=== PATIENT | male | born 1965 | race African-American/Black ===

== ENCOUNTER 2021-10-29 09:26 | Inpatient (IN) | payer MEDICAID ==
[~2021-10-29] VITALS: Ht 180.3 cm; Wt 76.2 kg
[~2021-10-29 09:26] MED LIST: ASPI81TA87 PO; ATOR40TA28 PO; FAMO20 PO; LOSA-370 PO; METF-1211 PO; NIFE30TA5 PO; aggrenox PO
[2021-10-29] MEDS ORDERED: INSULIN REGULAR, HUMAN 100 UNITS/ML IVP ONE ×2 (09:45→18:30)
[2021-10-29] MEDS ORDERED: SODIUM CHLORIDE 0.9% 1,000 ML IV ONE ×3 (09:45→12:30)
[2021-10-29 10:11] LABS: BASOPHILS % (AUTO) 0.5 % (0.0-2.0); EOSINOPHILS % (AUTO) 0.2 % (1.0-6.0); HEMATOCRIT 51.5 % (41-53); HEMOGLOBIN 16.3 g/dL (13.5-17.5); LYMPHOCYTES # (AUTO) 0.6 K/uL (1.0-4.8); MEAN CORPUSCULAR HEMOGLOBIN 26.1 pg (26.0-34.0); MEAN CORPUSCULAR HGB CONC 31.7 G/dL (31.0-37.0); MEAN CORPUSCULAR VOLUME 82 fL (80-100); NEUTROPHILS # (AUTO) 10.9 K/uL (1.8-7.7); PLATELET COUNT (AUTO) 416 K/uL (150-450); RED BLOOD CELL COUNT(AUTO) 6.25 MIL/uL (4.50-5.90); RED CELL DISTRIBUTION WIDTH 14.4 % (11.5-14.5)
[2021-10-29 10:18] LABS: NEUTROPHILS % (AUTO) 86.3 % (40.0-70.0)
[2021-10-29 10:36] LABS: TROPONIN I 0.08 ng/mL (0.00-0.05)
[2021-10-29 10:37] LABS: INR 1.1 (0.9-1.1); PROTHROMBIN TIME 11.7 SEC (9.4-11.6)
[2021-10-29 10:39] LABS: COVID AG,FIA SOURCE NASOPHARYNGEAL
[2021-10-29 10:50] LABS: AMMONIA < 10 umol/L (11-32)
[2021-10-29 10:53] LABS: ALANINE AMINOTRANSFERASE 20 U/L (12-78); ALBUMIN 3.5 g/dL (3.4-5.0); ALKALINE PHOSPHATASE 92 U/L (46-116); ANION GAP 16 mmol/L (8-16); ASPARTATE AMINOTRANSFERASE 13 U/L (15-37); BILIRUBIN,TOTAL 0.5 mg/dL (0.1-1.0); CALCIUM, TOTAL 9.6 mg/dL (8.8-10.5); CARBON DIOXIDE 26 mmol/L (22-29); CHLORIDE 104 mmol/L (98-107); CREATINE KINASE, TOTAL ONLY 121 U/L (39-308); CREATININE 2.65 mg/dL (0.60-1.30); GLOMERULAR FILTR. RATE CALC 30 mL/min (>60); POTASSIUM 4.8 mmol/L (3.5-5.1); SODIUM SERUM 146 mmol/L (136-145); UREA NITROGEN, BLOOD 67 mg/dL (7-18)
[2021-10-29 10:54] LABS: GLUCOSE,RANDOM 676 mg/dL (70-110)
[2021-10-29 11:27] LABS: GLUCOMETER DEV NAME(LOC) ERT.5; GLUCOSE,POINT OF CARE 484 MG/DL (70-110)
[2021-10-29] MEDS ORDERED: ONDANSETRON HCL 4 MG/2 ML VIAL IVP PRN (12:30)
[2021-10-29] MEDS ORDERED: ACETAMINOPHEN 325 MG TABLET PO PRN (12:30)
[2021-10-29 14:11] LABS: GLUCOMETER DEV NAME(LOC) ERT.5; GLUCOSE,POINT OF CARE 422 MG/DL (70-110)
[2021-10-29 15:16] LABS: ALBUMIN 2.7 g/dL (3.4-5.0); BILIRUBIN,TOTAL 0.4 mg/dL (0.1-1.0); CALCIUM, TOTAL 8.4 mg/dL (8.8-10.5); CREATININE 2.09 mg/dL (0.60-1.30); POTASSIUM 4.4 mmol/L (3.5-5.1); TOTAL PROTEIN, SERUM 7.1 g/dL (6.4-8.2)
[2021-10-29] MEDS: HydrALAZINE HCL 20 MG/ML VIAL IVP PRN (16:57)
[2021-10-29] MEDS ORDERED: LABETALOL HCL 200 MG in DEXTROSE 5%-WATER 160 ML IV PRN (18:30)
[2021-10-29] MEDS ORDERED: INSULIN REGULAR, HUMAN 100 UNITS in SODIUM CHLORIDE 0.9% 99 ML IV PRN ×2 (18:30)
[2021-10-29] MEDS ORDERED: SODIUM CHLORIDE 0.45% 1,000 ML IV ONE (18:30)
[2021-10-29] MEDS ORDERED: DEXTROSE 50%-WATER 25 GM/50 ML SYRINGE IVP PRN (18:30)
[2021-10-29 19:11] LABS: GLUCOMETER DEV NAME(LOC) ERT.5; GLUCOSE,POINT OF CARE 384 MG/DL (70-110)
[2021-10-29 19:23] LABS: BASOPHILS % (AUTO) 0.3 % (0.0-2.0); EOSINOPHILS % (AUTO) 0 % (1.0-6.0); HEMATOCRIT 45.5 % (41-53); HEMOGLOBIN 14.4 g/dL (13.5-17.5); LYMPHOCYTES # (AUTO) 0.6 K/uL (1.0-4.8); LYMPHOCYTES % (AUTO) 5.3 % (22.0-44.0); MEAN CORPUSCULAR HEMOGLOBIN 25.5 pg (26.0-34.0); MEAN CORPUSCULAR HGB CONC 31.6 G/dL (31.0-37.0); MEAN CORPUSCULAR VOLUME 81 fL (80-100); MONOCYTES # (AUTO) 0.8 K/uL (0.1-1.0); MONOCYTES % (AUTO) 6.7 % (2.0-9.0); NEUTROPHILS # (AUTO) 10.3 K/uL (1.8-7.7); NEUTROPHILS % (AUTO) 87.7 % (40.0-70.0); PLATELET COUNT (AUTO) 380 K/uL (150-450); RED BLOOD CELL COUNT(AUTO) 5.65 MIL/uL (4.50-5.90); RED CELL DISTRIBUTION WIDTH 14.3 % (11.5-14.5)
[2021-10-29 19:38] LABS: LACTIC ACID 1.1 mmol/L (0.4-2.0)
[2021-10-29 19:56] LABS: C-REACTIVE PROTEIN QUANT 2.16 mg/dL (0.00-0.30); CALCIUM, TOTAL 8.5 mg/dL (8.8-10.5); CREATININE 1.88 mg/dL (0.60-1.30); FREE T4 (FREE THYROXINE) 1.28 ng/dL (0.76-1.46); POTASSIUM 4.3 mmol/L (3.5-5.1); THYROID STIMULATING HORMONE 0.2 uIU/mL (0.36-3.74)
[2021-10-29] MEDS ORDERED: DESMOPRESSIN ACETATE 1 MCG in SODIUM CHLORIDE 0.9% 50 ML IV ONE (20:15)
[2021-10-29] MEDS ORDERED: SODIUM CHLORIDE 3% 500 ML IV ONE (20:15)
[2021-10-29 20:30] LABS: GLUCOMETER DEV NAME(LOC) ERT.5; GLUCOSE,POINT OF CARE 366 MG/DL (70-110)
[2021-10-29 20:32] LABS: ABG BASE EXCESS -1.9 mmol/L (-2.0-3.0); ABG CARBOXYHEMOGLOBIN 0.3 % (0.0-1.5); ABG HCO3 23.2 mmol/L (22.0-26.0); ABG METHEMOGLOBIN 0.4 % (0.0-1.5); ABG OXYGEN CONTENT 19.7 mL/dL (15.0-23.0); ABG OXYGEN SATURATION 94.5 % (95.0-98.0); ABG OXYHEMOGLOBIN 93.8 % (94.0-100.0); ABG PCO2 37 mmHg (35-45); ABG PH 7.405 (7.35-7.450); ABG TOTAL HEMOGLOBIN 14.9 G/dL (12.0-18.0); SOURCE, BLOOD GAS ARTERIAL; TEMPERATURE, FAHRENHEIT, BG 98.4 FAHREN (96.0-98.6)
[2021-10-29 20:33] LABS: O2 DEVICE,BLOOD GAS ROOM AIR (ROOM AIR); SITE, BLOOD GAS RT RADIAL
[2021-10-29 21:22] LABS: AMPHET/METH SCREEN,URINE NEGATIVE (NEGATIVE); BARBITURATE SCREEN, URINE NEGATIVE (NEGATIVE); BENZODIAZEPINES SCREEN,URINE NEGATIVE (NEGATIVE); CANNABINOID SCREEN,URINE NEGATIVE (NEGATIVE); COCAINE SCREEN,URINE NEGATIVE (NEGATIVE); METHADONE SCREEN, URINE NEGATIVE (NEGATIVE); OPIATE SCREEN,URINE NEGATIVE (NEGATIVE)
[2021-10-29 21:28] LABS: APPEARANCE,URINE CLEAR (CLEAR); BILIRUBIN,URINE NEGATIVE (NEGATIVE); GLUCOSE, URINE (UA) >=1000 mg/dL (NEGATIVE); KETONES,URINE 40 mg/dL (NEGATIVE); LEUKOCYTE ESTERASE ,URINE NEGATIVE (NEGATIVE); NITRATE,URINE NEGATIVE (NEGATIVE); OCCULT BLOOD,URINE NEGATIVE (NEGATIVE); PROTEIN,URINE TRACE (NEGATIVE); UROBILINOGEN,URINE 0.2 mg/dL (<=1.0)
[2021-10-29 21:30] LABS: PHENCYCLIDINE SCREEN,URINE NEGATIVE (NEGATIVE)
[2021-10-29 21:43] LABS: BACTERIA,URINE Rare /HPF (None Seen); RBC,URINE 0-2 /HPF (0-2); WBC,URINE 0-2 /HPF (0-5); YEAST,URINE Rare /HPF (None Seen)
[2021-10-29 21:52] LABS: GLUCOMETER DEV NAME(LOC) ERT.5; GLUCOSE,POINT OF CARE 374 MG/DL (70-110)
[2021-10-29 22:41] LABS: GLUCOMETER DEV NAME(LOC) ERT.5; GLUCOSE,POINT OF CARE 345 MG/DL (70-110)
[2021-10-29 23:09] LABS: BASOPHILS % (AUTO) 0.5 % (0.0-2.0); EOSINOPHILS % (AUTO) 0 % (1.0-6.0); HEMATOCRIT 44.3 % (41-53); HEMOGLOBIN 14.4 g/dL (13.5-17.5); LYMPHOCYTES # (AUTO) 0.4 K/uL (1.0-4.8); LYMPHOCYTES % (AUTO) 4.4 % (22.0-44.0); MEAN CORPUSCULAR HGB CONC 32.5 G/dL (31.0-37.0); MEAN CORPUSCULAR VOLUME 80 fL (80-100); MONOCYTES # (AUTO) 0.4 K/uL (0.1-1.0); MONOCYTES % (AUTO) 4.3 % (2.0-9.0); NEUTROPHILS # (AUTO) 9.2 K/uL (1.8-7.7); PLATELET COUNT (AUTO) 361 K/uL (150-450); RED BLOOD CELL COUNT(AUTO) 5.52 MIL/uL (4.50-5.90); RED CELL DISTRIBUTION WIDTH 14.4 % (11.5-14.5)
[2021-10-29 23:11] LABS: NEUTROPHILS % (AUTO) 90.8 % (40.0-70.0)
[2021-10-29 23:30] LABS: CALCIUM, TOTAL 8.5 mg/dL (8.8-10.5); CREATININE 1.89 mg/dL (0.60-1.30); POTASSIUM 3.6 mmol/L (3.5-5.1)
[2021-10-29 23:36] LABS: GLUCOMETER DEV NAME(LOC) ERT.5; GLUCOSE,POINT OF CARE 291 MG/DL (70-110)
[2021-10-30 00:31] LABS: GLUCOMETER DEV NAME(LOC) ERT.5; GLUCOSE,POINT OF CARE 267 MG/DL (70-110)
[2021-10-30] MEDS ORDERED: DEXTROSE 50%-WATER 25 GM/50 ML SYRINGE IVP PRN (00:45)
[2021-10-30 01:34] VITALS: BP 153/88
[2021-10-30 03:28] VITALS: BP 170/90
[2021-10-30] MEDS: HydrALAZINE HCL 20 MG/ML VIAL IVP PRN (03:33)
[2021-10-30] MEDS: INSULIN LISPRO 100 UNITS/ML SQ PRN ×4 (06:18→20:58)
[2021-10-30 08:11] LABS: ALBUMIN 2.6 g/dL (3.4-5.0); BILIRUBIN,TOTAL 0.4 mg/dL (0.1-1.0); CALCIUM, TOTAL 8.5 mg/dL (8.8-10.5); CREATININE 1.65 mg/dL (0.60-1.30); POTASSIUM 3.8 mmol/L (3.5-5.1); TOTAL PROTEIN, SERUM 7.1 g/dL (6.4-8.2)
[2021-10-30 08:41] VITALS: BP 130/83
[2021-10-30] MEDS: FAMOTIDINE 20 MG TABLET PO SCH (09:30)
[2021-10-30] MEDS: LOSARTAN POTASSIUM 25 MG TABLET PO SCH (09:30)
[2021-10-30] MEDS: DEXTROSE 5%-WATER 500 ML IV SCH ×2 (09:46→17:17)
[2021-10-30] MEDS: CefTRIAXone 1 GM/DEXTROSE 50 ML IV SCH (10:40)
[2021-10-30 11:46] LABS: GLUCOMETER DEV NAME(LOC) 5N.3; GLUCOSE,POINT OF CARE 294 MG/DL (70-110)
[2021-10-30 11:46] LABS: GLUCOMETER DEV NAME(LOC) 5N.3; GLUCOSE,POINT OF CARE 239 MG/DL (70-110)
[2021-10-30 11:49] VITALS: BP 153/87
[2021-10-30 12:16] LABS: GLUCOMETER DEV NAME(LOC) 5N.1C; GLUCOSE,POINT OF CARE 255 MG/DL (70-110)
[2021-10-30] MEDS ORDERED: ASPI-1444 PO (13:46)
[2021-10-30] MEDS ORDERED: ASPI1CPM21 PO (13:46)
[2021-10-30 15:14] VITALS: BP 137/99
[2021-10-30] MEDS: ATORVASTATIN CALCIUM 40 MG TABLET PO SCH (20:50)
[2021-10-30] MEDS: INSULIN GLARGINE,HUM.REC.ANLOG 100 UNITS/ML SQ SCH (20:56)
[2021-10-30 21:01] LABS: GLUCOMETER DEV NAME(LOC) 5N.1C; GLUCOSE,POINT OF CARE 309 MG/DL (70-110)
[2021-10-31] MEDS: DEXTROSE 5%-WATER 500 ML IV SCH ×2 (00:54→05:30)
[2021-10-31 05:41] LABS: GLUCOMETER DEV NAME(LOC) 5N.1C; GLUCOSE,POINT OF CARE 258 MG/DL (70-110)
[2021-10-31 07:12] VITALS: BP 140/91
[2021-10-31 07:15] VITALS: BP 158/98
[2021-10-31 07:35] LABS: GLUCOMETER DEV NAME(LOC) 5N.1C; GLUCOSE,POINT OF CARE 260 MG/DL (70-110)
[2021-10-31] MEDS: FAMOTIDINE 20 MG TABLET PO SCH (07:55)
[2021-10-31] MEDS: NIFEdipine 30 MG ER TABLET PO SCH (07:55)
[2021-10-31] MEDS: LOSARTAN POTASSIUM 25 MG TABLET PO SCH (07:55)
[2021-10-31] MEDS: ASPIRIN 81 MG DR TABLET PO SCH (07:55)
[2021-10-31 08:40] LABS: ALBUMIN 2.2 g/dL (3.4-5.0); BILIRUBIN,TOTAL 0.4 mg/dL (0.1-1.0); CALCIUM, TOTAL 7.7 mg/dL (8.8-10.5); CREATININE 1.64 mg/dL (0.60-1.30); POTASSIUM 3.3 mmol/L (3.5-5.1); TOTAL PROTEIN, SERUM 6.4 g/dL (6.4-8.2)
[2021-10-31] MEDS: INSULIN GLARGINE,HUM.REC.ANLOG 100 UNITS/ML SQ SCH ×2 (08:57→21:00)
[2021-10-31] MEDS: CefTRIAXone 1 GM/DEXTROSE 50 ML IV SCH (09:11)
[2021-10-31 11:22] VITALS: BP 130/70
[2021-10-31 11:57] LABS: GLUCOMETER DEV NAME(LOC) 5N.1C; GLUCOSE,POINT OF CARE 292 MG/DL (70-110)
[2021-10-31] MEDS: INSULIN LISPRO 100 UNITS/ML SQ PRN ×2 (12:15→17:37)
[2021-10-31 12:24] LABS: BASOPHILS % (AUTO) 0.4 % (0.0-2.0); EOSINOPHILS % (AUTO) 0 % (1.0-6.0); HEMATOCRIT 46.8 % (41-53); HEMOGLOBIN 14.6 g/dL (13.5-17.5); LYMPHOCYTES # (AUTO) 0.6 K/uL (1.0-4.8); LYMPHOCYTES % (AUTO) 6.5 % (22.0-44.0); MEAN CORPUSCULAR HEMOGLOBIN 25.7 pg (26.0-34.0); MEAN CORPUSCULAR HGB CONC 31.3 G/dL (31.0-37.0); MEAN CORPUSCULAR VOLUME 82 fL (80-100); MONOCYTES # (AUTO) 0.4 K/uL (0.1-1.0); MONOCYTES % (AUTO) 4.2 % (2.0-9.0); NEUTROPHILS # (AUTO) 8.3 K/uL (1.8-7.7); PLATELET COUNT (AUTO) 298 K/uL (150-450); RED CELL DISTRIBUTION WIDTH 14.8 % (11.5-14.5)
[2021-10-31 12:26] LABS: NEUTROPHILS % (AUTO) 88.9 % (40.0-70.0)
[2021-10-31 13:00] LABS: CALCIUM, TOTAL 8.8 mg/dL (8.8-10.5); CREATININE 1.8 mg/dL (0.60-1.30); POTASSIUM 4.1 mmol/L (3.5-5.1)
[2021-10-31 13:04] LABS: ALBUMIN 2.5 g/dL (3.4-5.0); BILIRUBIN,TOTAL 0.4 mg/dL (0.1-1.0); TOTAL PROTEIN, SERUM 7.1 g/dL (6.4-8.2)
[2021-10-31 15:01] LABS: BASOPHILS % (AUTO) 0.3 % (0.0-2.0); EOSINOPHILS % (AUTO) 0 % (1.0-6.0); HEMATOCRIT 47.8 % (41-53); HEMOGLOBIN 15.1 g/dL (13.5-17.5); LYMPHOCYTES # (AUTO) 0.7 K/uL (1.0-4.8); LYMPHOCYTES % (AUTO) 7.5 % (22.0-44.0); MEAN CORPUSCULAR HEMOGLOBIN 25.7 pg (26.0-34.0); MEAN CORPUSCULAR HGB CONC 31.6 G/dL (31.0-37.0); MEAN CORPUSCULAR VOLUME 81 fL (80-100); MONOCYTES # (AUTO) 0.4 K/uL (0.1-1.0); MONOCYTES % (AUTO) 4.5 % (2.0-9.0); PLATELET COUNT (AUTO) 280 K/uL (150-450); RED BLOOD CELL COUNT(AUTO) 5.88 MIL/uL (4.50-5.90); RED CELL DISTRIBUTION WIDTH 14.4 % (11.5-14.5)
[2021-10-31 15:02] LABS: NEUTROPHILS % (AUTO) 87.7 % (40.0-70.0)
[2021-10-31 15:27] VITALS: BP 149/88
[2021-10-31 16:00] LABS: BASOPHILS % (AUTO) 0.2 % (0.0-2.0); EOSINOPHILS % (AUTO) 0 % (1.0-6.0); HEMOGLOBIN 15.7 g/dL (13.5-17.5); LYMPHOCYTES # (AUTO) 0.8 K/uL (1.0-4.8); LYMPHOCYTES % (AUTO) 8.5 % (22.0-44.0); MEAN CORPUSCULAR HEMOGLOBIN 25.7 pg (26.0-34.0); MEAN CORPUSCULAR HGB CONC 31.9 G/dL (31.0-37.0); MEAN CORPUSCULAR VOLUME 81 fL (80-100); MONOCYTES # (AUTO) 0.5 K/uL (0.1-1.0); MONOCYTES % (AUTO) 6.1 % (2.0-9.0); NEUTROPHILS # (AUTO) 7.6 K/uL (1.8-7.7); PLATELET COUNT (AUTO) 276 K/uL (150-450); RED BLOOD CELL COUNT(AUTO) 6.08 MIL/uL (4.50-5.90); RED CELL DISTRIBUTION WIDTH 14.4 % (11.5-14.5)
[2021-10-31 16:07] LABS: NEUTROPHILS % (AUTO) 85.2 % (40.0-70.0)
[2021-10-31 16:11] LABS: LACTIC ACID 1.5 mmol/L (0.4-2.0); TROPONIN I 0.16 ng/mL (0.00-0.05)
[2021-10-31 16:20] LABS: CALCIUM, TOTAL 8.5 mg/dL (8.8-10.5); CREATININE 1.6 mg/dL (0.60-1.30); POTASSIUM 3.6 mmol/L (3.5-5.1)
[2021-10-31 16:25] LABS: ALBUMIN 2.4 g/dL (3.4-5.0); BILIRUBIN,TOTAL 0.3 mg/dL (0.1-1.0); TOTAL PROTEIN, SERUM 7.2 g/dL (6.4-8.2)
[2021-10-31 17:52] LABS: GLUCOMETER DEV NAME(LOC) 5N.3; GLUCOSE,POINT OF CARE 215 MG/DL (70-110)
[2021-10-31 17:52] LABS: GLUCOMETER DEV NAME(LOC) 5N.3; GLUCOSE,POINT OF CARE 212 MG/DL (70-110)
[2021-10-31 19:36] VITALS: BP 138/84
[2021-10-31 20:21] LABS: GLUCOMETER DEV NAME(LOC) 5N.1C; GLUCOSE,POINT OF CARE 319 MG/DL (70-110)
[2021-10-31] MEDS: ATORVASTATIN CALCIUM 40 MG TABLET PO SCH (21:00)
[2021-10-31] MEDS ORDERED: D5 IV ONE (21:00)
[2021-10-31] MEDS ORDERED: POTASSIUM CHL IV ONE (21:00)
[2021-10-31] MEDS ORDERED: [UNRECOGNIZED DRUG - OTHER] IV ONE (21:00)
[2021-10-31 21:21] LABS: GLUCOMETER DEV NAME(LOC) 5N.3; GLUCOSE,POINT OF CARE 174 MG/DL (70-110)
[2021-10-31] MEDS ORDERED: SODIUM CHLORIDE 0.45% 1,000 ML IV SCH (23:30)
[2021-11-01] VITALS (7 sets, daily range): BP systolic 116–162; BP diastolic 71–96
[2021-11-01] MEDS: HydrALAZINE HCL 20 MG/ML VIAL IVP PRN (00:29)
[2021-11-01 02:57] LABS: CALCIUM, TOTAL 8.3 mg/dL (8.8-10.5); CREATININE 1.5 mg/dL (0.60-1.30); POTASSIUM 3.9 mmol/L (3.5-5.1)
[2021-11-01] MEDS: DEXTROSE 5%-WATER 1,000 ML IV SCH ×2 (03:00→10:15)
[2021-11-01] MEDS ORDERED: IOHEXOL 350 MG/ML 100 ML VIAL ONE (04:07)
[2021-11-01] MEDS ORDERED: SODIUM CHLORIDE 0.9% 100 ML ONE (04:07)
[2021-11-01] MEDS: INSULIN LISPRO 100 UNITS/ML SQ PRN ×4 (05:47→22:32)
[2021-11-01 05:52] LABS: GLUCOMETER DEV NAME(LOC) 5N.3; GLUCOSE,POINT OF CARE 248 MG/DL (70-110)
[2021-11-01] MEDS ORDERED: HEPARIN SODIUM,PORCINE 5,000 UNITS/ML VIAL IVP PRN ×2 (06:00)
[2021-11-01] MEDS ORDERED: HEPARIN SODIUM,PORCINE 5,000 UNITS/ML VIAL IVP ONE (06:00)
[2021-11-01 06:55] LABS: BASOPHILS % (AUTO) 0.5 % (0.0-2.0); EOSINOPHILS % (AUTO) 0 % (1.0-6.0); HEMATOCRIT 47.8 % (41-53); HEMOGLOBIN 15.2 g/dL (13.5-17.5); LYMPHOCYTES # (AUTO) 0.9 K/uL (1.0-4.8); LYMPHOCYTES % (AUTO) 8.6 % (22.0-44.0); MEAN CORPUSCULAR HEMOGLOBIN 26.1 pg (26.0-34.0); MEAN CORPUSCULAR HGB CONC 31.8 G/dL (31.0-37.0); MEAN CORPUSCULAR VOLUME 82 fL (80-100); MONOCYTES # (AUTO) 0.5 K/uL (0.1-1.0); MONOCYTES % (AUTO) 4.7 % (2.0-9.0); NEUTROPHILS # (AUTO) 8.8 K/uL (1.8-7.7); PLATELET COUNT (AUTO) 223 K/uL (150-450); RED BLOOD CELL COUNT(AUTO) 5.83 MIL/uL (4.50-5.90); RED CELL DISTRIBUTION WIDTH 14.6 % (11.5-14.5)
[2021-11-01 06:58] LABS: NEUTROPHILS % (AUTO) 86.2 % (40.0-70.0)
[2021-11-01 08:14] LABS: INR 1.4 (0.9-1.1); PROTHROMBIN TIME 14.7 SEC (9.4-11.6)
[2021-11-01] MEDS: FAMOTIDINE 20 MG TABLET PO SCH (08:45)
[2021-11-01] MEDS: NIFEdipine 30 MG ER TABLET PO SCH ×2 (08:45→16:18)
[2021-11-01] MEDS: ASPIRIN 81 MG DR TABLET PO SCH (08:45)
[2021-11-01] MEDS: INSULIN GLARGINE,HUM.REC.ANLOG 100 UNITS/ML SQ SCH ×2 (08:47→22:32)
[2021-11-01] MEDS: ACETYLCYSTEINE 20% 200 MG/ML 4 ML ORAL SOLUTION PO SCH ×2 (09:00→22:29)
[2021-11-01] MEDS: HEPARIN SODIUM 25000 UNITS/D5W 250 ML IV PRN ×2 (10:01→17:48)
[2021-11-01] MEDS: CefTRIAXone 1 GM/DEXTROSE 50 ML IV SCH (10:03)
[2021-11-01 15:21] LABS: GLUCOMETER DEV NAME(LOC) 5N.3; GLUCOSE,POINT OF CARE 312 MG/DL (70-110)
[2021-11-01 16:12] LABS: BASOPHILS % (AUTO) 0.2 % (0.0-2.0); EOSINOPHILS % (AUTO) 0.1 % (1.0-6.0); HEMATOCRIT 44.7 % (41-53); HEMOGLOBIN 14.1 g/dL (13.5-17.5); LYMPHOCYTES # (AUTO) 0.8 K/uL (1.0-4.8); LYMPHOCYTES % (AUTO) 8.7 % (22.0-44.0); MEAN CORPUSCULAR HEMOGLOBIN 25.9 pg (26.0-34.0); MEAN CORPUSCULAR HGB CONC 31.7 G/dL (31.0-37.0); MEAN CORPUSCULAR VOLUME 82 fL (80-100); MONOCYTES # (AUTO) 0.6 K/uL (0.1-1.0); NEUTROPHILS # (AUTO) 8.3 K/uL (1.8-7.7); PLATELET COUNT (AUTO) 234 K/uL (150-450); RED BLOOD CELL COUNT(AUTO) 5.47 MIL/uL (4.50-5.90); RED CELL DISTRIBUTION WIDTH 14.5 % (11.5-14.5)
[2021-11-01] MEDS: METOPROLOL SUCCINATE 25 MG ER TABLET PO SCH (16:20)
[2021-11-01 16:21] LABS: CALCIUM, TOTAL 8.1 mg/dL (8.8-10.5); CREATININE 1.51 mg/dL (0.60-1.30); POTASSIUM 3.8 mmol/L (3.5-5.1)
[2021-11-01 16:27] LABS: ALBUMIN 2.1 g/dL (3.4-5.0); BILIRUBIN,TOTAL 0.4 mg/dL (0.1-1.0); TOTAL PROTEIN, SERUM 6.4 g/dL (6.4-8.2)
[2021-11-01] MEDS ORDERED: ACETAMINOPHEN 325 MG TABLET PO PRN (17:30)
[2021-11-01 22:16] LABS: GLUCOMETER DEV NAME(LOC) 5N.3; GLUCOSE,POINT OF CARE 260 MG/DL (70-110)
[2021-11-01 22:16] LABS: GLUCOMETER DEV NAME(LOC) 5N.3; GLUCOSE,POINT OF CARE 319 MG/DL (70-110)
[2021-11-01] MEDS: ATORVASTATIN CALCIUM 40 MG TABLET PO SCH (22:29)
[2021-11-02] MEDS: DEXTROSE 5%-WATER 1,000 ML IV SCH ×2 (03:30→17:19)
[2021-11-02 04:20] VITALS: BP 150/87
[2021-11-02 05:51] LABS: GLUCOMETER DEV NAME(LOC) 5N.3; GLUCOSE,POINT OF CARE 131 MG/DL (70-110)
[2021-11-02 07:36] VITALS: BP 145/90
[2021-11-02] MEDS: INSULIN GLARGINE,HUM.REC.ANLOG 100 UNITS/ML SQ SCH ×2 (07:42→21:04)
[2021-11-02 09:10] LABS: BASOPHILS % (AUTO) 0.5 % (0.0-2.0); EOSINOPHILS % (AUTO) 0.2 % (1.0-6.0); HEMATOCRIT 43.2 % (41-53); HEMOGLOBIN 13.9 g/dL (13.5-17.5); LYMPHOCYTES # (AUTO) 1.1 K/uL (1.0-4.8); LYMPHOCYTES % (AUTO) 10.9 % (22.0-44.0); MEAN CORPUSCULAR HGB CONC 32.2 G/dL (31.0-37.0); MEAN CORPUSCULAR VOLUME 81 fL (80-100); MONOCYTES # (AUTO) 0.7 K/uL (0.1-1.0); MONOCYTES % (AUTO) 6.9 % (2.0-9.0); NEUTROPHILS # (AUTO) 8.4 K/uL (1.8-7.7); NEUTROPHILS % (AUTO) 81.5 % (40.0-70.0); PLATELET COUNT (AUTO) 232 K/uL (150-450); RED BLOOD CELL COUNT(AUTO) 5.34 MIL/uL (4.50-5.90); RED CELL DISTRIBUTION WIDTH 14.2 % (11.5-14.5)
[2021-11-02] MEDS: HEPARIN SODIUM 25000 UNITS/D5W 250 ML IV PRN (09:12)
[2021-11-02] MEDS: FAMOTIDINE 20 MG TABLET PO SCH (09:13)
[2021-11-02] MEDS: CefTRIAXone 1 GM/DEXTROSE 50 ML IV SCH (09:13)
[2021-11-02] MEDS: METOPROLOL SUCCINATE 25 MG ER TABLET PO SCH (09:14)
[2021-11-02] MEDS: ACETYLCYSTEINE 20% 200 MG/ML 4 ML ORAL SOLUTION PO SCH ×2 (09:14→21:03)
[2021-11-02] MEDS: ASPIRIN 81 MG DR TABLET PO SCH (09:14)
[2021-11-02 09:28] LABS: ALANINE AMINOTRANSFERASE 13 U/L (12-78); ALKALINE PHOSPHATASE 61 U/L (46-116); ANION GAP 5 mmol/L (8-16); ASPARTATE AMINOTRANSFERASE 16 U/L (15-37); BILIRUBIN,TOTAL 0.5 mg/dL (0.1-1.0); CARBON DIOXIDE 29 mmol/L (22-29); CHLORIDE 114 mmol/L (98-107); CREATININE 1.43 mg/dL (0.60-1.30); GLUCOSE,RANDOM 237 mg/dL (70-110); POTASSIUM 3.5 mmol/L (3.5-5.1); SODIUM SERUM 148 mmol/L (136-145); TOTAL PROTEIN, SERUM 6.4 g/dL (6.4-8.2); UREA NITROGEN, BLOOD 16 mg/dL (7-18)
[2021-11-02 09:30] LABS: GLOMERULAR FILTR. RATE CALC > 60 mL/min (>60)
[2021-11-02 11:04] VITALS: BP 142/70
[2021-11-02] MEDS: INSULIN LISPRO 100 UNITS/ML SQ PRN ×3 (12:48→21:04)
[2021-11-02 13:16] LABS: GLUCOMETER DEV NAME(LOC) 5N.3; GLUCOSE,POINT OF CARE 225 MG/DL (70-110)
[2021-11-02 15:40] VITALS: BP 135/86
[2021-11-02 19:42] VITALS: BP 134/64
[2021-11-02] MEDS: DOCUSATE SODIUM 100 MG CAPSULE PO SCH (21:03)
[2021-11-02] MEDS: ATORVASTATIN CALCIUM 40 MG TABLET PO SCH (21:03)
[2021-11-02 21:16] LABS: GLUCOMETER DEV NAME(LOC) 5N.1C; GLUCOSE,POINT OF CARE 169 MG/DL (70-110)
[2021-11-02 23:33] VITALS: BP 126/64
[2021-11-03 04:10] VITALS: BP 151/90
[2021-11-03] MEDS ORDERED: SODIUM CHLORIDE 0.9% 1,000 ML ONE (06:15)
[2021-11-03] MEDS: INSULIN LISPRO 100 UNITS/ML SQ PRN ×4 (06:16→21:08)
[2021-11-03] MEDS: DEXTROSE 5%-WATER 1,000 ML IV SCH ×2 (06:21→16:51)
[2021-11-03 06:27] LABS: GLUCOMETER DEV NAME(LOC) 5N.1C; GLUCOSE,POINT OF CARE 237 MG/DL (70-110)
[2021-11-03 07:11] LABS: GLUCOMETER DEV NAME(LOC) 5N.3; GLUCOSE,POINT OF CARE 183 MG/DL (70-110)
[2021-11-03] MEDS: FAMOTIDINE 20 MG TABLET PO SCH (07:58)
[2021-11-03] MEDS: NIFEdipine 30 MG ER TABLET PO SCH (07:58)
[2021-11-03] MEDS: DOCUSATE SODIUM 100 MG CAPSULE PO SCH ×2 (07:58→21:11)
[2021-11-03] MEDS: METOPROLOL SUCCINATE 25 MG ER TABLET PO SCH (07:58)
[2021-11-03] MEDS: ASPIRIN 81 MG DR TABLET PO SCH (07:58)
[2021-11-03] MEDS: INSULIN GLARGINE,HUM.REC.ANLOG 100 UNITS/ML SQ SCH ×2 (08:02→21:08)
[2021-11-03 08:06] VITALS: BP 155/87
[2021-11-03 10:03] LABS: BASOPHILS % (AUTO) 0.6 % (0.0-2.0); EOSINOPHILS % (AUTO) 1.5 % (1.0-6.0); HEMATOCRIT 42.7 % (41-53); HEMOGLOBIN 13.9 g/dL (13.5-17.5); LYMPHOCYTES # (AUTO) 1.1 K/uL (1.0-4.8); LYMPHOCYTES % (AUTO) 12.4 % (22.0-44.0); MEAN CORPUSCULAR HEMOGLOBIN 25.9 pg (26.0-34.0); MEAN CORPUSCULAR HGB CONC 32.5 G/dL (31.0-37.0); MEAN CORPUSCULAR VOLUME 80 fL (80-100); MONOCYTES # (AUTO) 0.8 K/uL (0.1-1.0); NEUTROPHILS # (AUTO) 6.8 K/uL (1.8-7.7); NEUTROPHILS % (AUTO) 76.5 % (40.0-70.0); PLATELET COUNT (AUTO) 239 K/uL (150-450); RED BLOOD CELL COUNT(AUTO) 5.35 MIL/uL (4.50-5.90)
[2021-11-03] MEDS: CefTRIAXone 1 GM/DEXTROSE 50 ML IV SCH (10:09)
[2021-11-03 10:17] LABS: ALANINE AMINOTRANSFERASE 15 U/L (12-78); ALBUMIN 1.9 g/dL (3.4-5.0); ALKALINE PHOSPHATASE 91 U/L (46-116); ANION GAP 5 mmol/L (8-16); ASPARTATE AMINOTRANSFERASE 21 U/L (15-37); BILIRUBIN,TOTAL 0.6 mg/dL (0.1-1.0); CALCIUM, TOTAL 7.9 mg/dL (8.8-10.5); CARBON DIOXIDE 29 mmol/L (22-29); CHLORIDE 104 mmol/L (98-107); CREATININE 1.19 mg/dL (0.60-1.30); GLOMERULAR FILTR. RATE CALC > 60 mL/min (>60); GLUCOSE,RANDOM 188 mg/dL (70-110); POTASSIUM 3.2 mmol/L (3.5-5.1); SODIUM SERUM 138 mmol/L (136-145); TOTAL PROTEIN, SERUM 6.6 g/dL (6.4-8.2); UREA NITROGEN, BLOOD 11 mg/dL (7-18)
[2021-11-03 12:56] VITALS: BP 153/88
[2021-11-03 16:33] VITALS: BP 149/85
[2021-11-03 20:32] VITALS: BP 119/66
[2021-11-03] MEDS ORDERED: POTASSIUM CHLORIDE 10% 40 MEQ/30 ML LIQUID UDCUP PO ONE (20:45)
[2021-11-03] MEDS: APIXABAN 5 MG TABLET PO SCH (21:11)
[2021-11-03] MEDS: ATORVASTATIN CALCIUM 40 MG TABLET PO SCH (21:11)
[2021-11-03 21:36] LABS: GLUCOMETER DEV NAME(LOC) 5N.1C; GLUCOSE,POINT OF CARE 255 MG/DL (70-110)
[2021-11-03 21:36] LABS: GLUCOMETER DEV NAME(LOC) 5N.1C; GLUCOSE,POINT OF CARE 308 MG/DL (70-110)
[2021-11-04] VITALS (7 sets, daily range): BP systolic 114–140; BP diastolic 64–91
[2021-11-04 07:16] LABS: GLUCOMETER DEV NAME(LOC) 5N.1C; GLUCOSE,POINT OF CARE 113 MG/DL (70-110)
[2021-11-04 07:57] LABS: BASOPHILS % (AUTO) 0.3 % (0.0-2.0); EOSINOPHILS % (AUTO) 1.6 % (1.0-6.0); HEMATOCRIT 39.2 % (41-53); HEMOGLOBIN 12.4 g/dL (13.5-17.5); LYMPHOCYTES # (AUTO) 1.2 K/uL (1.0-4.8); LYMPHOCYTES % (AUTO) 11.7 % (22.0-44.0); MEAN CORPUSCULAR HEMOGLOBIN 25.3 pg (26.0-34.0); MEAN CORPUSCULAR HGB CONC 31.7 G/dL (31.0-37.0); MEAN CORPUSCULAR VOLUME 80 fL (80-100); MONOCYTES # (AUTO) 1.1 K/uL (0.1-1.0); MONOCYTES % (AUTO) 11.2 % (2.0-9.0); NEUTROPHILS # (AUTO) 7.4 K/uL (1.8-7.7); NEUTROPHILS % (AUTO) 75.2 % (40.0-70.0); PLATELET COUNT (AUTO) 241 K/uL (150-450); RED BLOOD CELL COUNT(AUTO) 4.91 MIL/uL (4.50-5.90); RED CELL DISTRIBUTION WIDTH 13.6 % (11.5-14.5)
[2021-11-04 08:27] LABS: ALANINE AMINOTRANSFERASE 32 U/L (12-78); ALBUMIN 1.9 g/dL (3.4-5.0); ALKALINE PHOSPHATASE 59 U/L (46-116); ANION GAP 8 mmol/L (8-16); ASPARTATE AMINOTRANSFERASE 53 U/L (15-37); BILIRUBIN,TOTAL 0.4 mg/dL (0.1-1.0); CALCIUM, TOTAL 8.1 mg/dL (8.8-10.5); CARBON DIOXIDE 27 mmol/L (22-29); CHLORIDE 105 mmol/L (98-107); CREATININE 1.16 mg/dL (0.60-1.30); GLOMERULAR FILTR. RATE CALC > 60 mL/min (>60); GLUCOSE,RANDOM 107 mg/dL (70-110); POTASSIUM 3.7 mmol/L (3.5-5.1); SODIUM SERUM 140 mmol/L (136-145); TOTAL PROTEIN, SERUM 6.3 g/dL (6.4-8.2); UREA NITROGEN, BLOOD 13 mg/dL (7-18)
[2021-11-04] MEDS: ASPIRIN 81 MG DR TABLET PO SCH (08:57)
[2021-11-04] MEDS: NIFEdipine 30 MG ER TABLET PO SCH (08:58)
[2021-11-04] MEDS: FAMOTIDINE 20 MG TABLET PO SCH (08:58)
[2021-11-04] MEDS: DOCUSATE SODIUM 100 MG CAPSULE PO SCH ×2 (08:58→21:15)
[2021-11-04] MEDS: METOPROLOL SUCCINATE 25 MG ER TABLET PO SCH (08:59)
[2021-11-04] MEDS: APIXABAN 5 MG TABLET PO SCH ×2 (09:00→21:14)
[2021-11-04] MEDS: INSULIN GLARGINE,HUM.REC.ANLOG 100 UNITS/ML SQ SCH ×2 (09:17→21:17)
[2021-11-04] MEDS: CefTRIAXone 1 GM/DEXTROSE 50 ML IV SCH (09:18)
[2021-11-04 10:16] LABS: BASOPHILS % (AUTO) 0.6 % (0.0-2.0); EOSINOPHILS % (AUTO) 1.4 % (1.0-6.0); HEMOGLOBIN 12.9 g/dL (13.5-17.5); LYMPHOCYTES % (AUTO) 11.4 % (22.0-44.0); MEAN CORPUSCULAR HEMOGLOBIN 25.6 pg (26.0-34.0); MEAN CORPUSCULAR HGB CONC 32.2 G/dL (31.0-37.0); MEAN CORPUSCULAR VOLUME 79 fL (80-100); MONOCYTES % (AUTO) 11.7 % (2.0-9.0); NEUTROPHILS # (AUTO) 6.4 K/uL (1.8-7.7); NEUTROPHILS % (AUTO) 74.9 % (40.0-70.0); PLATELET COUNT (AUTO) 275 K/uL (150-450); RED BLOOD CELL COUNT(AUTO) 5.03 MIL/uL (4.50-5.90); RED CELL DISTRIBUTION WIDTH 13.5 % (11.5-14.5)
[2021-11-04 10:22] LABS: ANION GAP 5 mmol/L (8-16); CARBON DIOXIDE 27 mmol/L (22-29); CHLORIDE 105 mmol/L (98-107); CREATININE 1.23 mg/dL (0.60-1.30); GLOMERULAR FILTR. RATE CALC > 60 mL/min (>60); GLUCOSE,RANDOM 187 mg/dL (70-110); POTASSIUM 3.6 mmol/L (3.5-5.1); SODIUM SERUM 137 mmol/L (136-145); UREA NITROGEN, BLOOD 12 mg/dL (7-18)
[2021-11-04 10:28] LABS: ALANINE AMINOTRANSFERASE 35 U/L (12-78); ALBUMIN 1.8 g/dL (3.4-5.0); ALKALINE PHOSPHATASE 57 U/L (46-116); ASPARTATE AMINOTRANSFERASE 52 U/L (15-37); BILIRUBIN,TOTAL 0.4 mg/dL (0.1-1.0); TOTAL PROTEIN, SERUM 6.3 g/dL (6.4-8.2)
[2021-11-04 11:56] LABS: GLUCOMETER DEV NAME(LOC) 5N.3; GLUCOSE,POINT OF CARE 217 MG/DL (70-110)
[2021-11-04] MEDS: INSULIN LISPRO 100 UNITS/ML SQ PRN (13:34)
[2021-11-04 17:47] LABS: GLUCOMETER DEV NAME(LOC) 5N.1C; GLUCOSE,POINT OF CARE 193 MG/DL (70-110)
[2021-11-04 20:22] LABS: GLUCOMETER DEV NAME(LOC) 5N.1C; GLUCOSE,POINT OF CARE 134 MG/DL (70-110)
[2021-11-04] MEDS: ATORVASTATIN CALCIUM 40 MG TABLET PO SCH (21:15)
[2021-11-04 23:26] LABS: GLUCOMETER DEV NAME(LOC) 5N.1C; GLUCOSE,POINT OF CARE 286 MG/DL (70-110)
[2021-11-05 04:25] VITALS: BP 153/92
[2021-11-05 05:31] LABS: GLUCOMETER DEV NAME(LOC) 5N.1C; GLUCOSE,POINT OF CARE 108 MG/DL (70-110)
[2021-11-05 06:57] LABS: BASOPHILS % (AUTO) 0.6 % (0.0-2.0); EOSINOPHILS % (AUTO) 1.1 % (1.0-6.0); HEMATOCRIT 42.3 % (41-53); HEMOGLOBIN 13.8 g/dL (13.5-17.5); LYMPHOCYTES # (AUTO) 1.1 K/uL (1.0-4.8); LYMPHOCYTES % (AUTO) 10.8 % (22.0-44.0); MEAN CORPUSCULAR HEMOGLOBIN 26.2 pg (26.0-34.0); MEAN CORPUSCULAR HGB CONC 32.6 G/dL (31.0-37.0); MEAN CORPUSCULAR VOLUME 80 fL (80-100); MONOCYTES # (AUTO) 1.2 K/uL (0.1-1.0); MONOCYTES % (AUTO) 11.2 % (2.0-9.0); NEUTROPHILS # (AUTO) 7.8 K/uL (1.8-7.7); NEUTROPHILS % (AUTO) 76.3 % (40.0-70.0); PLATELET COUNT (AUTO) 279 K/uL (150-450); RED BLOOD CELL COUNT(AUTO) 5.28 MIL/uL (4.50-5.90); RED CELL DISTRIBUTION WIDTH 13.4 % (11.5-14.5)
[2021-11-05 07:18] LABS: ALANINE AMINOTRANSFERASE 53 U/L (12-78); ALKALINE PHOSPHATASE 83 U/L (46-116); ANION GAP 8 mmol/L (8-16); ASPARTATE AMINOTRANSFERASE 58 U/L (15-37); BILIRUBIN,TOTAL 0.4 mg/dL (0.1-1.0); CALCIUM, TOTAL 8.4 mg/dL (8.8-10.5); CARBON DIOXIDE 26 mmol/L (22-29); CHLORIDE 104 mmol/L (98-107); GLOMERULAR FILTR. RATE CALC > 60 mL/min (>60); GLUCOSE,RANDOM 106 mg/dL (70-110); POTASSIUM 3.8 mmol/L (3.5-5.1); SODIUM SERUM 138 mmol/L (136-145); TOTAL PROTEIN, SERUM 7.1 g/dL (6.4-8.2); UREA NITROGEN, BLOOD 11 mg/dL (7-18)
[2021-11-05 07:39] VITALS: BP 138/80
[2021-11-05] MEDS: APIXABAN 5 MG TABLET PO SCH ×2 (08:40→20:48)
[2021-11-05] MEDS: NIFEdipine 30 MG ER TABLET PO SCH (08:41)
[2021-11-05] MEDS: ASPIRIN 81 MG DR TABLET PO SCH (08:41)
[2021-11-05] MEDS: METOPROLOL SUCCINATE 25 MG ER TABLET PO SCH (08:41)
[2021-11-05] MEDS: DOCUSATE SODIUM 100 MG CAPSULE PO SCH ×2 (08:41→20:48)
[2021-11-05] MEDS: FAMOTIDINE 20 MG TABLET PO SCH (08:42)
[2021-11-05] MEDS: INSULIN GLARGINE,HUM.REC.ANLOG 100 UNITS/ML SQ SCH ×2 (08:46→20:49)
[2021-11-05] MEDS: CefTRIAXone 1 GM/DEXTROSE 50 ML IV SCH (08:51)
[2021-11-05 11:49] VITALS: BP 143/88
[2021-11-05] MEDS: INSULIN LISPRO 100 UNITS/ML SQ PRN ×2 (12:22→17:34)
[2021-11-05 12:33] LABS: GLUCOMETER DEV NAME(LOC) 5N.1C; GLUCOSE,POINT OF CARE 222 MG/DL (70-110)
[2021-11-05] MEDS: TAMSULOSIN HCL 0.4 MG CAPSULE PO SCH ×2 (12:41→20:48)
[2021-11-05 15:19] VITALS: BP 140/70
[2021-11-05 17:46] LABS: GLUCOMETER DEV NAME(LOC) 5N.1C; GLUCOSE,POINT OF CARE 210 MG/DL (70-110)
[2021-11-05 19:35] VITALS: BP 131/79
[2021-11-05 20:46] LABS: GLUCOMETER DEV NAME(LOC) 5N.1C; GLUCOSE,POINT OF CARE 208 MG/DL (70-110)
[2021-11-05] MEDS: ATORVASTATIN CALCIUM 40 MG TABLET PO SCH (20:48)
[2021-11-06] VITALS: BP 132/82
[2021-11-06 04:48] VITALS: BP 158/86
[2021-11-06 05:32] LABS: GLUCOMETER DEV NAME(LOC) 5N.1C; GLUCOSE,POINT OF CARE 149 MG/DL (70-110)
[2021-11-06 06:55] LABS: BASOPHILS % (AUTO) 0.2 % (0.0-2.0); EOSINOPHILS % (AUTO) 0.7 % (1.0-6.0); HEMATOCRIT 41.5 % (41-53); HEMOGLOBIN 13.8 g/dL (13.5-17.5); LYMPHOCYTES # (AUTO) 1.3 K/uL (1.0-4.8); LYMPHOCYTES % (AUTO) 11.5 % (22.0-44.0); MEAN CORPUSCULAR HEMOGLOBIN 26.3 pg (26.0-34.0); MEAN CORPUSCULAR HGB CONC 33.3 G/dL (31.0-37.0); MEAN CORPUSCULAR VOLUME 79 fL (80-100); MONOCYTES # (AUTO) 1.3 K/uL (0.1-1.0); MONOCYTES % (AUTO) 11.4 % (2.0-9.0); NEUTROPHILS # (AUTO) 8.3 K/uL (1.8-7.7); NEUTROPHILS % (AUTO) 76.2 % (40.0-70.0); PLATELET COUNT (AUTO) 365 K/uL (150-450); RED BLOOD CELL COUNT(AUTO) 5.26 MIL/uL (4.50-5.90); RED CELL DISTRIBUTION WIDTH 13.5 % (11.5-14.5)
[2021-11-06 07:17] LABS: ALANINE AMINOTRANSFERASE 47 U/L (12-78); ALBUMIN 1.9 g/dL (3.4-5.0); ALKALINE PHOSPHATASE 74 U/L (46-116); ANION GAP 10 mmol/L (8-16); ASPARTATE AMINOTRANSFERASE 38 U/L (15-37); BILIRUBIN,TOTAL 0.4 mg/dL (0.1-1.0); CALCIUM, TOTAL 8.4 mg/dL (8.8-10.5); CARBON DIOXIDE 25 mmol/L (22-29); CHLORIDE 104 mmol/L (98-107); CREATININE 1.14 mg/dL (0.60-1.30); GLOMERULAR FILTR. RATE CALC > 60 mL/min (>60); GLUCOSE,RANDOM 161 mg/dL (70-110); POTASSIUM 3.9 mmol/L (3.5-5.1); SODIUM SERUM 139 mmol/L (136-145); UREA NITROGEN, BLOOD 12 mg/dL (7-18)
[2021-11-06 07:31] VITALS: BP 154/87
[2021-11-06] MEDS: APIXABAN 5 MG TABLET PO SCH ×2 (09:08→20:55)
[2021-11-06] MEDS: TAMSULOSIN HCL 0.4 MG CAPSULE PO SCH ×2 (09:09→20:55)
[2021-11-06] MEDS: ASPIRIN 81 MG DR TABLET PO SCH (09:09)
[2021-11-06] MEDS: DOCUSATE SODIUM 100 MG CAPSULE PO SCH ×2 (09:09→20:55)
[2021-11-06] MEDS: METOPROLOL SUCCINATE 25 MG ER TABLET PO SCH (09:10)
[2021-11-06] MEDS: FAMOTIDINE 20 MG TABLET PO SCH (09:10)
[2021-11-06] MEDS: NIFEdipine 30 MG ER TABLET PO SCH (09:10)
[2021-11-06] MEDS: INSULIN GLARGINE,HUM.REC.ANLOG 100 UNITS/ML SQ SCH ×2 (09:13→20:56)
[2021-11-06 11:15] VITALS: BP 139/80
[2021-11-06 12:01] LABS: GLUCOMETER DEV NAME(LOC) 5S.2B; GLUCOSE,POINT OF CARE 174 MG/DL (70-110)
[2021-11-06] MEDS: CefTRIAXone 1 GM/DEXTROSE 50 ML IV SCH (12:05)
[2021-11-06] MEDS: INSULIN LISPRO 100 UNITS/ML SQ PRN ×3 (12:10→20:57)
[2021-11-06 13:48] LABS: COVID AG,FIA SOURCE NASOPHARYNGEAL
[2021-11-06 16:17] VITALS: BP 144/72
[2021-11-06 19:45] VITALS: BP 118/75
[2021-11-06 20:06] LABS: GLUCOMETER DEV NAME(LOC) 5N.1C; GLUCOSE,POINT OF CARE 225 MG/DL (70-110)
[2021-11-06] MEDS: ATORVASTATIN CALCIUM 40 MG TABLET PO SCH (20:55)
[2021-11-06 21:06] LABS: GLUCOMETER DEV NAME(LOC) 5N.1C; GLUCOSE,POINT OF CARE 306 MG/DL (70-110)
[2021-11-07] VITALS (9 sets, daily range): BP systolic 112–156; BP diastolic 64–94
[2021-11-07] MEDS: INSULIN LISPRO 100 UNITS/ML SQ PRN ×4 (06:23→21:15)
[2021-11-07 06:36] LABS: GLUCOMETER DEV NAME(LOC) 5N.1C; GLUCOSE,POINT OF CARE 155 MG/DL (70-110)
[2021-11-07 07:20] LABS: BASOPHILS % (AUTO) 0.7 % (0.0-2.0); EOSINOPHILS % (AUTO) 0.6 % (1.0-6.0); HEMATOCRIT 38.6 % (41-53); HEMOGLOBIN 12.6 g/dL (13.5-17.5); LYMPHOCYTES # (AUTO) 1.2 K/uL (1.0-4.8); LYMPHOCYTES % (AUTO) 11.5 % (22.0-44.0); MEAN CORPUSCULAR HEMOGLOBIN 25.7 pg (26.0-34.0); MEAN CORPUSCULAR HGB CONC 32.7 G/dL (31.0-37.0); MEAN CORPUSCULAR VOLUME 79 fL (80-100); MONOCYTES # (AUTO) 1.1 K/uL (0.1-1.0); MONOCYTES % (AUTO) 10.3 % (2.0-9.0); NEUTROPHILS # (AUTO) 8.3 K/uL (1.8-7.7); NEUTROPHILS % (AUTO) 76.9 % (40.0-70.0); PLATELET COUNT (AUTO) 424 K/uL (150-450); RED BLOOD CELL COUNT(AUTO) 4.91 MIL/uL (4.50-5.90); RED CELL DISTRIBUTION WIDTH 13.6 % (11.5-14.5)
[2021-11-07 07:34] LABS: ALANINE AMINOTRANSFERASE 34 U/L (12-78); ALBUMIN 1.8 g/dL (3.4-5.0); ALKALINE PHOSPHATASE 69 U/L (46-116); ANION GAP 7 mmol/L (8-16); ASPARTATE AMINOTRANSFERASE 20 U/L (15-37); BILIRUBIN,TOTAL 0.4 mg/dL (0.1-1.0); CALCIUM, TOTAL 8.1 mg/dL (8.8-10.5); CARBON DIOXIDE 27 mmol/L (22-29); CHLORIDE 104 mmol/L (98-107); CREATININE 1.18 mg/dL (0.60-1.30); GLOMERULAR FILTR. RATE CALC > 60 mL/min (>60); GLUCOSE,RANDOM 177 mg/dL (70-110); SODIUM SERUM 138 mmol/L (136-145); TOTAL PROTEIN, SERUM 6.7 g/dL (6.4-8.2); UREA NITROGEN, BLOOD 10 mg/dL (7-18)
[2021-11-07] MEDS: DOCUSATE SODIUM 100 MG CAPSULE PO SCH ×2 (08:37→21:03)
[2021-11-07] MEDS: NIFEdipine 30 MG ER TABLET PO SCH (08:38)
[2021-11-07] MEDS: APIXABAN 5 MG TABLET PO SCH ×2 (08:38→21:04)
[2021-11-07] MEDS: ASPIRIN 81 MG DR TABLET PO SCH (08:38)
[2021-11-07] MEDS: TAMSULOSIN HCL 0.4 MG CAPSULE PO SCH ×2 (08:38→21:04)
[2021-11-07] MEDS: FAMOTIDINE 20 MG TABLET PO SCH (08:38)
[2021-11-07] MEDS: METOPROLOL SUCCINATE 25 MG ER TABLET PO SCH (08:38)
[2021-11-07] MEDS: INSULIN GLARGINE,HUM.REC.ANLOG 100 UNITS/ML SQ SCH ×2 (08:41→21:14)
[2021-11-07 08:46] LABS: GLUCOMETER DEV NAME(LOC) 5N.1C; GLUCOSE,POINT OF CARE 127 MG/DL (70-110)
[2021-11-07] MEDS: CefTRIAXone 1 GM/DEXTROSE 50 ML IV SCH (09:50)
[2021-11-07 12:11] LABS: GLUCOMETER DEV NAME(LOC) 5N.1C; GLUCOSE,POINT OF CARE 205 MG/DL (70-110)
[2021-11-07 17:16] LABS: GLUCOMETER DEV NAME(LOC) 5N.1C; GLUCOSE,POINT OF CARE 217 MG/DL (70-110)
[2021-11-07] MEDS: ATORVASTATIN CALCIUM 40 MG TABLET PO SCH (21:03)
[2021-11-07 21:36] LABS: GLUCOMETER DEV NAME(LOC) 5N.1C; GLUCOSE,POINT OF CARE 156 MG/DL (70-110)
[2021-11-08 05:25] VITALS: BP 152/95
[2021-11-08] MEDS: INSULIN LISPRO 100 UNITS/ML SQ PRN ×4 (06:11→21:39)
[2021-11-08 07:19] LABS: BASOPHILS % (AUTO) 0.7 % (0.0-2.0); EOSINOPHILS % (AUTO) 0.9 % (1.0-6.0); HEMATOCRIT 37.5 % (41-53); HEMOGLOBIN 12.2 g/dL (13.5-17.5); LYMPHOCYTES # (AUTO) 1.5 K/uL (1.0-4.8); LYMPHOCYTES % (AUTO) 14.9 % (22.0-44.0); MEAN CORPUSCULAR HEMOGLOBIN 25.9 pg (26.0-34.0); MEAN CORPUSCULAR HGB CONC 32.7 G/dL (31.0-37.0); MEAN CORPUSCULAR VOLUME 79 fL (80-100); MONOCYTES # (AUTO) 0.8 K/uL (0.1-1.0); MONOCYTES % (AUTO) 7.9 % (2.0-9.0); NEUTROPHILS # (AUTO) 7.8 K/uL (1.8-7.7); NEUTROPHILS % (AUTO) 75.6 % (40.0-70.0); PLATELET COUNT (AUTO) 422 K/uL (150-450); RED BLOOD CELL COUNT(AUTO) 4.73 MIL/uL (4.50-5.90); RED CELL DISTRIBUTION WIDTH 13.3 % (11.5-14.5)
[2021-11-08 07:41] LABS: ALANINE AMINOTRANSFERASE 28 U/L (12-78); ALKALINE PHOSPHATASE 65 U/L (46-116); ANION GAP 4 mmol/L (8-16); ASPARTATE AMINOTRANSFERASE 19 U/L (15-37); BILIRUBIN,TOTAL 0.4 mg/dL (0.1-1.0); CALCIUM, TOTAL 8.6 mg/dL (8.8-10.5); CARBON DIOXIDE 29 mmol/L (22-29); CHLORIDE 104 mmol/L (98-107); CREATININE 1.14 mg/dL (0.60-1.30); GLOMERULAR FILTR. RATE CALC > 60 mL/min (>60); GLUCOSE,RANDOM 118 mg/dL (70-110); POTASSIUM 4.1 mmol/L (3.5-5.1); SODIUM SERUM 137 mmol/L (136-145); TOTAL PROTEIN, SERUM 7.2 g/dL (6.4-8.2); UREA NITROGEN, BLOOD 9 mg/dL (7-18)
[2021-11-08] MEDS: INSULIN GLARGINE,HUM.REC.ANLOG 100 UNITS/ML SQ SCH ×2 (08:25→21:38)
[2021-11-08] MEDS: APIXABAN 5 MG TABLET PO SCH ×2 (08:26→21:37)
[2021-11-08] MEDS: NIFEdipine 30 MG ER TABLET PO SCH (08:26)
[2021-11-08] MEDS: FAMOTIDINE 20 MG TABLET PO SCH (08:26)
[2021-11-08] MEDS: METOPROLOL SUCCINATE 25 MG ER TABLET PO SCH (08:26)
[2021-11-08] MEDS: TAMSULOSIN HCL 0.4 MG CAPSULE PO SCH ×2 (08:26→21:37)
[2021-11-08] MEDS: ASPIRIN 81 MG DR TABLET PO SCH (08:26)
[2021-11-08] MEDS: DOCUSATE SODIUM 100 MG CAPSULE PO SCH ×2 (08:26→21:37)
[2021-11-08 08:31] VITALS: BP 150/88
[2021-11-08] MEDS: CefTRIAXone 1 GM/DEXTROSE 50 ML IV SCH (10:08)
[2021-11-08 11:36] LABS: GLUCOMETER DEV NAME(LOC) 5N.1C; GLUCOSE,POINT OF CARE 200 MG/DL (70-110)
[2021-11-08 11:43] VITALS: BP 157/75
[2021-11-08 18:08] LABS: GLUCOMETER DEV NAME(LOC) 5S.1; GLUCOSE,POINT OF CARE 166 MG/DL (70-110)
[2021-11-08 20:00] VITALS: BP 134/78
[2021-11-08] MEDS: ATORVASTATIN CALCIUM 40 MG TABLET PO SCH (21:37)
[2021-11-08 22:37] LABS: GLUCOMETER DEV NAME(LOC) 5N.1C; GLUCOSE,POINT OF CARE 233 MG/DL (70-110)
[2021-11-08 22:37] LABS: GLUCOMETER DEV NAME(LOC) 5S.2B; GLUCOSE,POINT OF CARE 145 MG/DL (70-110)
[2021-11-09] VITALS (7 sets, daily range): BP systolic 122–160; BP diastolic 61–91
[2021-11-09] MEDS: INSULIN LISPRO 100 UNITS/ML SQ PRN ×4 (05:55→21:23)
[2021-11-09] MEDS: INSULIN GLARGINE,HUM.REC.ANLOG 100 UNITS/ML SQ SCH ×2 (08:18→21:22)
[2021-11-09] MEDS: FAMOTIDINE 20 MG TABLET PO SCH (08:19)
[2021-11-09] MEDS: DOCUSATE SODIUM 100 MG CAPSULE PO SCH ×2 (08:19→21:20)
[2021-11-09] MEDS: TAMSULOSIN HCL 0.4 MG CAPSULE PO SCH ×2 (08:19→21:21)
[2021-11-09] MEDS: ASPIRIN 81 MG DR TABLET PO SCH (08:19)
[2021-11-09] MEDS: NIFEdipine 30 MG ER TABLET PO SCH (08:19)
[2021-11-09] MEDS: APIXABAN 5 MG TABLET PO SCH ×2 (08:20→21:20)
[2021-11-09] MEDS: METOPROLOL SUCCINATE 25 MG ER TABLET PO SCH (08:20)
[2021-11-09] MEDS: CefTRIAXone 1 GM/DEXTROSE 50 ML IV SCH (10:07)
[2021-11-09 11:51] LABS: GLUCOMETER DEV NAME(LOC) 5S.2B; GLUCOSE,POINT OF CARE 146 MG/DL (70-110)
[2021-11-09 17:32] LABS: GLUCOMETER DEV NAME(LOC) 5N.1C; GLUCOSE,POINT OF CARE 133 MG/DL (70-110)
[2021-11-09 21:12] LABS: GLUCOMETER DEV NAME(LOC) 5S.1; GLUCOSE,POINT OF CARE 133 MG/DL (70-110)
[2021-11-09] MEDS: ATORVASTATIN CALCIUM 40 MG TABLET PO SCH (21:20)
[2021-11-10] VITALS (7 sets, daily range): BP systolic 122–158; BP diastolic 72–96
[2021-11-10 07:21] LABS: GLUCOMETER DEV NAME(LOC) 5N.1C; GLUCOSE,POINT OF CARE 104 MG/DL (70-110)
[2021-11-10 07:21] LABS: GLUCOMETER DEV NAME(LOC) 5N.1C; GLUCOSE,POINT OF CARE 199 MG/DL (70-110)
[2021-11-10] MEDS: APIXABAN 5 MG TABLET PO SCH ×2 (08:47→20:59)
[2021-11-10] MEDS: METOPROLOL SUCCINATE 25 MG ER TABLET PO SCH (08:47)
[2021-11-10] MEDS: FAMOTIDINE 20 MG TABLET PO SCH (08:47)
[2021-11-10] MEDS: ASPIRIN 81 MG DR TABLET PO SCH (08:47)
[2021-11-10] MEDS: TAMSULOSIN HCL 0.4 MG CAPSULE PO SCH ×2 (08:47→20:59)
[2021-11-10] MEDS: DOCUSATE SODIUM 100 MG CAPSULE PO SCH ×2 (08:48→20:59)
[2021-11-10] MEDS: NIFEdipine 30 MG ER TABLET PO SCH (08:48)
[2021-11-10] MEDS: INSULIN GLARGINE,HUM.REC.ANLOG 100 UNITS/ML SQ SCH ×2 (08:49→20:55)
[2021-11-10] MEDS: CefTRIAXone 1 GM/DEXTROSE 50 ML IV SCH (10:48)
[2021-11-10] MEDS: INSULIN LISPRO 100 UNITS/ML SQ PRN ×3 (12:17→20:57)
[2021-11-10 12:42] LABS: GLUCOMETER DEV NAME(LOC) 5S.1; GLUCOSE,POINT OF CARE 162 MG/DL (70-110)
[2021-11-10 18:12] LABS: GLUCOMETER DEV NAME(LOC) 5S.1; GLUCOSE,POINT OF CARE 152 MG/DL (70-110)
[2021-11-10 20:56] LABS: GLUCOMETER DEV NAME(LOC) 5N.1C; GLUCOSE,POINT OF CARE 171 MG/DL (70-110)
[2021-11-10] MEDS: ATORVASTATIN CALCIUM 40 MG TABLET PO SCH (20:59)
[2021-11-11 03:33] VITALS: BP 156/89
[2021-11-11 07:01] LABS: GLUCOMETER DEV NAME(LOC) 5N.1C; GLUCOSE,POINT OF CARE 98 MG/DL (70-110)
[2021-11-11 07:54] VITALS: BP 128/85
[2021-11-11] MEDS: NIFEdipine 30 MG ER TABLET PO SCH (09:36)
[2021-11-11] MEDS: METOPROLOL SUCCINATE 25 MG ER TABLET PO SCH (09:36)
[2021-11-11] MEDS: DOCUSATE SODIUM 100 MG CAPSULE PO SCH ×2 (09:36→21:23)
[2021-11-11] MEDS: TAMSULOSIN HCL 0.4 MG CAPSULE PO SCH ×2 (09:36→21:24)
[2021-11-11] MEDS: FAMOTIDINE 20 MG TABLET PO SCH (09:36)
[2021-11-11] MEDS: APIXABAN 5 MG TABLET PO SCH ×2 (09:36→21:24)
[2021-11-11] MEDS: ASPIRIN 81 MG DR TABLET PO SCH (09:36)
[2021-11-11] MEDS: INSULIN GLARGINE,HUM.REC.ANLOG 100 UNITS/ML SQ SCH ×2 (09:38→21:23)
[2021-11-11] MEDS: CefTRIAXone 1 GM/DEXTROSE 50 ML IV SCH (10:15)
[2021-11-11 11:17] VITALS: BP 153/94
[2021-11-11] MEDS: INSULIN LISPRO 100 UNITS/ML SQ PRN (12:18)
[2021-11-11 15:56] VITALS: BP 134/83
[2021-11-11 20:20] VITALS: BP 129/81
[2021-11-11] MEDS: ATORVASTATIN CALCIUM 40 MG TABLET PO SCH (21:23)
[2021-11-12 00:25] VITALS: BP 127/78
[2021-11-12 04:39] VITALS: BP 120/78
[2021-11-12 07:24] VITALS: BP 133/84
[2021-11-12 08:22] LABS: GLUCOMETER DEV NAME(LOC) 5S.1; GLUCOSE,POINT OF CARE 136 MG/DL (70-110)
[2021-11-12 08:22] LABS: GLUCOMETER DEV NAME(LOC) 5S.1; GLUCOSE,POINT OF CARE 98 MG/DL (70-110)
[2021-11-12 08:22] LABS: GLUCOMETER DEV NAME(LOC) 5N.1C; GLUCOSE,POINT OF CARE 110 MG/DL (70-110)
[2021-11-12 08:22] LABS: GLUCOMETER DEV NAME(LOC) 5S.1; GLUCOSE,POINT OF CARE 154 MG/DL (70-110)
[2021-11-12] MEDS: ASPIRIN 81 MG DR TABLET PO SCH (09:02)
[2021-11-12] MEDS: NIFEdipine 30 MG ER TABLET PO SCH (09:02)
[2021-11-12] MEDS: METOPROLOL SUCCINATE 25 MG ER TABLET PO SCH (09:03)
[2021-11-12] MEDS: FAMOTIDINE 20 MG TABLET PO SCH (09:03)
[2021-11-12] MEDS: DOCUSATE SODIUM 100 MG CAPSULE PO SCH ×2 (09:03→20:56)
[2021-11-12] MEDS: TAMSULOSIN HCL 0.4 MG CAPSULE PO SCH ×2 (09:03→20:56)
[2021-11-12] MEDS: APIXABAN 5 MG TABLET PO SCH ×2 (09:04→20:56)
[2021-11-12] MEDS: INSULIN GLARGINE,HUM.REC.ANLOG 100 UNITS/ML SQ SCH ×2 (09:06→21:00)
[2021-11-12] MEDS: CefTRIAXone 1 GM/DEXTROSE 50 ML IV SCH (10:06)
[2021-11-12 11:33] VITALS: BP 150/98
[2021-11-12 11:37] LABS: COVID AG,FIA SOURCE NASAL SWAB
[2021-11-12 15:51] VITALS: BP 139/79
[2021-11-12] MEDS: INSULIN LISPRO 100 UNITS/ML SQ PRN (17:56)
[2021-11-12 20:05] VITALS: BP 134/86
[2021-11-12] MEDS: ATORVASTATIN CALCIUM 40 MG TABLET PO SCH (20:56)
[2021-11-13 00:05] VITALS: BP 145/86
[2021-11-13 00:36] LABS: GLUCOMETER DEV NAME(LOC) 5N.1C; GLUCOSE,POINT OF CARE 115 MG/DL (70-110)
[2021-11-13 00:37] LABS: GLUCOMETER DEV NAME(LOC) 5N.1C; GLUCOSE,POINT OF CARE 184 MG/DL (70-110)
[2021-11-13 00:37] LABS: GLUCOMETER DEV NAME(LOC) 5N.1C; GLUCOSE,POINT OF CARE 118 MG/DL (70-110)
[2021-11-13 04:20] VITALS: BP 135/63
[2021-11-13 08:15] LABS: GLUCOMETER DEV NAME(LOC) 5S.1; GLUCOSE,POINT OF CARE 92 MG/DL (70-110)
[2021-11-13 08:35] VITALS: BP 142/94
[2021-11-13] MEDS: DOCUSATE SODIUM 100 MG CAPSULE PO SCH ×2 (08:43→20:51)
[2021-11-13] MEDS: INSULIN GLARGINE,HUM.REC.ANLOG 100 UNITS/ML SQ SCH ×2 (08:44→20:52)
[2021-11-13] MEDS: FAMOTIDINE 20 MG TABLET PO SCH (08:44)
[2021-11-13] MEDS: APIXABAN 5 MG TABLET PO SCH ×2 (08:44→20:50)
[2021-11-13] MEDS: NIFEdipine 30 MG ER TABLET PO SCH (08:44)
[2021-11-13] MEDS: ASPIRIN 81 MG DR TABLET PO SCH (08:44)
[2021-11-13] MEDS: METOPROLOL SUCCINATE 25 MG ER TABLET PO SCH (08:44)
[2021-11-13] MEDS: TAMSULOSIN HCL 0.4 MG CAPSULE PO SCH ×2 (08:45→20:50)
[2021-11-13] MEDS: CefTRIAXone 1 GM/DEXTROSE 50 ML IV SCH (10:11)
[2021-11-13 11:12] VITALS: BP 149/88
[2021-11-13 12:17] LABS: GLUCOMETER DEV NAME(LOC) 5S.1; GLUCOSE,POINT OF CARE 142 MG/DL (70-110)
[2021-11-13] MEDS: INSULIN LISPRO 100 UNITS/ML SQ PRN ×2 (12:36→20:53)
[2021-11-13 16:15] VITALS: BP 141/87
[2021-11-13 19:36] VITALS: BP 147/79
[2021-11-13] MEDS: ATORVASTATIN CALCIUM 40 MG TABLET PO SCH (20:50)
[2021-11-14] VITALS (7 sets, daily range): BP systolic 136–149; BP diastolic 74–93
[2021-11-14 07:17] LABS: GLUCOMETER DEV NAME(LOC) 5S.1; GLUCOSE,POINT OF CARE 162 MG/DL (70-110)
[2021-11-14] MEDS: ASPIRIN 81 MG DR TABLET PO SCH (09:40)
[2021-11-14] MEDS: FAMOTIDINE 20 MG TABLET PO SCH (09:40)
[2021-11-14] MEDS: APIXABAN 5 MG TABLET PO SCH ×2 (09:40→21:32)
[2021-11-14] MEDS: METOPROLOL SUCCINATE 25 MG ER TABLET PO SCH (09:40)
[2021-11-14] MEDS: TAMSULOSIN HCL 0.4 MG CAPSULE PO SCH ×2 (09:40→21:32)
[2021-11-14] MEDS: NIFEdipine 30 MG ER TABLET PO SCH (09:40)
[2021-11-14] MEDS: DOCUSATE SODIUM 100 MG CAPSULE PO SCH ×2 (09:41→21:32)
[2021-11-14] MEDS: INSULIN GLARGINE,HUM.REC.ANLOG 100 UNITS/ML SQ SCH ×2 (09:42→21:34)
[2021-11-14] MEDS: CefTRIAXone 1 GM/DEXTROSE 50 ML IV SCH (09:43)
[2021-11-14] MEDS: INSULIN LISPRO 100 UNITS/ML SQ PRN ×3 (12:33→21:34)
[2021-11-14 17:26] LABS: GLUCOMETER DEV NAME(LOC) 5N.3; GLUCOSE,POINT OF CARE 108 MG/DL (70-110)
[2021-11-14 17:26] LABS: GLUCOMETER DEV NAME(LOC) 5N.3; GLUCOSE,POINT OF CARE 190 MG/DL (70-110)
[2021-11-14 18:39] LABS: BASOPHILS % (AUTO) 0.7 % (0.0-2.0); EOSINOPHILS % (AUTO) 1.2 % (1.0-6.0); HEMATOCRIT 39.4 % (41-53); HEMOGLOBIN 12.8 g/dL (13.5-17.5); LYMPHOCYTES # (AUTO) 1.2 K/uL (1.0-4.8); LYMPHOCYTES % (AUTO) 14.1 % (22.0-44.0); MEAN CORPUSCULAR HEMOGLOBIN 25.5 pg (26.0-34.0); MEAN CORPUSCULAR HGB CONC 32.5 G/dL (31.0-37.0); MEAN CORPUSCULAR VOLUME 79 fL (80-100); MONOCYTES # (AUTO) 0.4 K/uL (0.1-1.0); MONOCYTES % (AUTO) 5.4 % (2.0-9.0); NEUTROPHILS # (AUTO) 6.5 K/uL (1.8-7.7); NEUTROPHILS % (AUTO) 78.6 % (40.0-70.0); PLATELET COUNT (AUTO) 631 K/uL (150-450); RED BLOOD CELL COUNT(AUTO) 5.02 MIL/uL (4.50-5.90); RED CELL DISTRIBUTION WIDTH 13.9 % (11.5-14.5)
[2021-11-14 19:02] LABS: ANION GAP 10 mmol/L (8-16); CALCIUM, TOTAL 9.1 mg/dL (8.8-10.5); CARBON DIOXIDE 29 mmol/L (22-29); CHLORIDE 100 mmol/L (98-107); CREATININE 1.34 mg/dL (0.60-1.30); GLUCOSE,RANDOM 219 mg/dL (70-110); POTASSIUM 4.6 mmol/L (3.5-5.1); SODIUM SERUM 139 mmol/L (136-145); UREA NITROGEN, BLOOD 17 mg/dL (7-18)
[2021-11-14 19:03] LABS: GLOMERULAR FILTR. RATE CALC > 60 mL/min (>60)
[2021-11-14 19:05] LABS: ALANINE AMINOTRANSFERASE 22 U/L (12-78); ALBUMIN 2.2 g/dL (3.4-5.0); ALKALINE PHOSPHATASE 75 U/L (46-116); ASPARTATE AMINOTRANSFERASE 15 U/L (15-37); BILIRUBIN,TOTAL 0.4 mg/dL (0.1-1.0)
[2021-11-14] MEDS: ATORVASTATIN CALCIUM 40 MG TABLET PO SCH (21:32)
[2021-11-14 23:36] LABS: GLUCOMETER DEV NAME(LOC) 5S.1; GLUCOSE,POINT OF CARE 189 MG/DL (70-110)
[2021-11-14 23:36] LABS: GLUCOMETER DEV NAME(LOC) 5S.1; GLUCOSE,POINT OF CARE 206 MG/DL (70-110)
[2021-11-15 04:12] VITALS: BP 150/93
[2021-11-15 07:00] VITALS: BP 119/47
[2021-11-15] MEDS: DOCUSATE SODIUM 100 MG CAPSULE PO SCH ×2 (09:00→20:24)
[2021-11-15] MEDS: FAMOTIDINE 20 MG TABLET PO SCH (09:24)
[2021-11-15] MEDS: APIXABAN 5 MG TABLET PO SCH ×2 (09:24→20:24)
[2021-11-15] MEDS: TAMSULOSIN HCL 0.4 MG CAPSULE PO SCH ×2 (09:25→20:24)
[2021-11-15] MEDS: ASPIRIN 81 MG DR TABLET PO SCH (09:25)
[2021-11-15] MEDS: NIFEdipine 30 MG ER TABLET PO SCH (09:25)
[2021-11-15] MEDS: METOPROLOL SUCCINATE 25 MG ER TABLET PO SCH (09:26)
[2021-11-15] MEDS: INSULIN GLARGINE,HUM.REC.ANLOG 100 UNITS/ML SQ SCH ×2 (09:34→20:37)
[2021-11-15] MEDS: CefTRIAXone 1 GM/DEXTROSE 50 ML IV SCH (09:35)
[2021-11-15 11:48] VITALS: BP 145/96
[2021-11-15 12:27] LABS: GLUCOMETER DEV NAME(LOC) 5N.3; GLUCOSE,POINT OF CARE 149 MG/DL (70-110)
[2021-11-15 12:27] LABS: GLUCOMETER DEV NAME(LOC) 5N.3; GLUCOSE,POINT OF CARE 132 MG/DL (70-110)
[2021-11-15 12:27] LABS: GLUCOMETER DEV NAME(LOC) 5N.3; GLUCOSE,POINT OF CARE 206 MG/DL (70-110)
[2021-11-15] MEDS: INSULIN LISPRO 100 UNITS/ML SQ PRN ×3 (12:41→20:37)
[2021-11-15 16:06] VITALS: BP 121/71
[2021-11-15 18:16] LABS: GLUCOMETER DEV NAME(LOC) 5S.1; GLUCOSE,POINT OF CARE 100 MG/DL (70-110)
[2021-11-15 20:00] VITALS: BP 151/74
[2021-11-15] MEDS: ATORVASTATIN CALCIUM 40 MG TABLET PO SCH (20:24)
[2021-11-15 22:05] VITALS: BP 125/65
[2021-11-16 03:55] VITALS: BP 148/80
[2021-11-16 07:36] VITALS: BP 134/82
[2021-11-16 07:40] LABS: BASOPHILS % (AUTO) 1.1 % (0.0-2.0); EOSINOPHILS % (AUTO) 2.4 % (1.0-6.0); HEMATOCRIT 36.7 % (41-53); HEMOGLOBIN 12.1 g/dL (13.5-17.5); LYMPHOCYTES # (AUTO) 1.5 K/uL (1.0-4.8); LYMPHOCYTES % (AUTO) 23.3 % (22.0-44.0); MEAN CORPUSCULAR HEMOGLOBIN 25.7 pg (26.0-34.0); MEAN CORPUSCULAR VOLUME 78 fL (80-100); MONOCYTES # (AUTO) 0.4 K/uL (0.1-1.0); MONOCYTES % (AUTO) 5.5 % (2.0-9.0); NEUTROPHILS # (AUTO) 4.3 K/uL (1.8-7.7); NEUTROPHILS % (AUTO) 67.7 % (40.0-70.0); PLATELET COUNT (AUTO) 587 K/uL (150-450); RED BLOOD CELL COUNT(AUTO) 4.72 MIL/uL (4.50-5.90); RED CELL DISTRIBUTION WIDTH 13.6 % (11.5-14.5)
[2021-11-16 07:42] LABS: ANION GAP 7 mmol/L (8-16); CALCIUM, TOTAL 8.8 mg/dL (8.8-10.5); CARBON DIOXIDE 27 mmol/L (22-29); CHLORIDE 103 mmol/L (98-107); CREATININE 0.99 mg/dL (0.60-1.30); GLOMERULAR FILTR. RATE CALC > 60 mL/min (>60); GLUCOSE,RANDOM 127 mg/dL (70-110); POTASSIUM 4.2 mmol/L (3.5-5.1); SODIUM SERUM 137 mmol/L (136-145); UREA NITROGEN, BLOOD 13 mg/dL (7-18)
[2021-11-16 08:11] LABS: GLUCOMETER DEV NAME(LOC) 5N.1C; GLUCOSE,POINT OF CARE 125 MG/DL (70-110)
[2021-11-16 08:11] LABS: GLUCOMETER DEV NAME(LOC) 5N.1C; GLUCOSE,POINT OF CARE 139 MG/DL (70-110)
[2021-11-16] MEDS: DOCUSATE SODIUM 100 MG CAPSULE PO SCH ×2 (10:59→21:30)
[2021-11-16] MEDS: FAMOTIDINE 20 MG TABLET PO SCH (11:00)
[2021-11-16] MEDS: NIFEdipine 30 MG ER TABLET PO SCH (11:00)
[2021-11-16] MEDS: METOPROLOL SUCCINATE 25 MG ER TABLET PO SCH (11:00)
[2021-11-16] MEDS: APIXABAN 5 MG TABLET PO SCH ×2 (11:00→21:30)
[2021-11-16] MEDS: INSULIN GLARGINE,HUM.REC.ANLOG 100 UNITS/ML SQ SCH ×2 (11:01→21:34)
[2021-11-16] MEDS: TAMSULOSIN HCL 0.4 MG CAPSULE PO SCH ×2 (11:01→21:30)
[2021-11-16 11:34] VITALS: BP 111/70
[2021-11-16] MEDS: INSULIN LISPRO 100 UNITS/ML SQ PRN ×3 (11:50→21:35)
[2021-11-16 15:33] VITALS: BP 142/86
[2021-11-16 20:19] VITALS: BP 149/79
[2021-11-16 20:51] LABS: GLUCOMETER DEV NAME(LOC) 5N.3; GLUCOSE,POINT OF CARE 266 MG/DL (70-110)
[2021-11-16 20:52] LABS: GLUCOMETER DEV NAME(LOC) 5N.3; GLUCOSE,POINT OF CARE 178 MG/DL (70-110)
[2021-11-16 20:52] LABS: GLUCOMETER DEV NAME(LOC) 5N.3; GLUCOSE,POINT OF CARE 170 MG/DL (70-110)
[2021-11-16] MEDS: ATORVASTATIN CALCIUM 40 MG TABLET PO SCH (21:30)
[2021-11-17 00:32] VITALS: BP 149/97
[2021-11-17 05:14] VITALS: BP 147/80
[2021-11-17 05:46] LABS: GLUCOMETER DEV NAME(LOC) 5N.3; GLUCOSE,POINT OF CARE 150 MG/DL (70-110)
[2021-11-17 07:17] VITALS: BP 153/92
[2021-11-17 07:46] LABS: GLUCOMETER DEV NAME(LOC) 5N.3; GLUCOSE,POINT OF CARE 93 MG/DL (70-110)
[2021-11-17] MEDS: DOCUSATE SODIUM 100 MG CAPSULE PO SCH ×2 (09:15→20:51)
[2021-11-17] MEDS: FAMOTIDINE 20 MG TABLET PO SCH (09:15)
[2021-11-17] MEDS: INSULIN GLARGINE,HUM.REC.ANLOG 100 UNITS/ML SQ SCH ×2 (09:15→20:51)
[2021-11-17] MEDS: APIXABAN 5 MG TABLET PO SCH ×2 (09:16→20:52)
[2021-11-17] MEDS: TAMSULOSIN HCL 0.4 MG CAPSULE PO SCH ×2 (09:16→20:52)
[2021-11-17] MEDS: NIFEdipine 30 MG ER TABLET PO SCH (09:17)
[2021-11-17] MEDS: METOPROLOL SUCCINATE 25 MG ER TABLET PO SCH (09:18)
[2021-11-17 11:26] VITALS: BP 128/81
[2021-11-17] MEDS: INSULIN LISPRO 100 UNITS/ML SQ PRN ×2 (11:55→20:51)
[2021-11-17] MEDS ORDERED: INSLAN SQ (12:13)
[2021-11-17] MEDS ORDERED: METO25XL PO (12:13)
[2021-11-17] MEDS ORDERED: APIX5TAB PO (12:13)
[2021-11-17] MEDS ORDERED: NIFE-40 PO (12:13)
[2021-11-17] MEDS ORDERED: INSU100V SQ (12:13)
[2021-11-17] MEDS ORDERED: ACET325T51 PO (12:13)
[2021-11-17] MEDS ORDERED: TAMS-13 PO (12:13)
[2021-11-17] MEDS ORDERED: ATOR40TA71 PO (12:19)
[2021-11-17 15:14] VITALS: BP 129/93
[2021-11-17 15:36] LABS: GLUCOMETER DEV NAME(LOC) 5N.1C; GLUCOSE,POINT OF CARE 172 MG/DL (70-110)
[2021-11-17 17:31] LABS: GLUCOMETER DEV NAME(LOC) 5N.3; GLUCOSE,POINT OF CARE 131 MG/DL (70-110)
[2021-11-17 17:31] LABS: GLUCOMETER DEV NAME(LOC) 5N.3; GLUCOSE,POINT OF CARE 92 MG/DL (70-110)
[2021-11-17 19:33] VITALS: BP 108/67
[2021-11-17 20:26] LABS: GLUCOMETER DEV NAME(LOC) 5N.3; GLUCOSE,POINT OF CARE 140 MG/DL (70-110)
[2021-11-17] MEDS: ATORVASTATIN CALCIUM 40 MG TABLET PO SCH (20:52)
[2021-11-18 00:30] VITALS: BP 142/85
[2021-11-18 03:42] VITALS: BP 143/93
[2021-11-18 06:11] LABS: GLUCOMETER DEV NAME(LOC) 5N.1C; GLUCOSE,POINT OF CARE 71 MG/DL (70-110)
[2021-11-18 08:07] VITALS: BP 139/99
[2021-11-18] MEDS: NIFEdipine 30 MG ER TABLET PO SCH (08:15)
[2021-11-18] MEDS: APIXABAN 5 MG TABLET PO SCH ×2 (08:15→20:14)
[2021-11-18] MEDS: FAMOTIDINE 20 MG TABLET PO SCH (08:15)
[2021-11-18] MEDS: METOPROLOL SUCCINATE 25 MG ER TABLET PO SCH (08:15)
[2021-11-18] MEDS: DOCUSATE SODIUM 100 MG CAPSULE PO SCH ×2 (08:15→20:14)
[2021-11-18] MEDS: TAMSULOSIN HCL 0.4 MG CAPSULE PO SCH ×2 (08:15→20:14)
[2021-11-18] MEDS: INSULIN GLARGINE,HUM.REC.ANLOG 100 UNITS/ML SQ SCH ×2 (08:18→20:16)
[2021-11-18 08:36] LABS: GLUCOMETER DEV NAME(LOC) 5N.1C; GLUCOSE,POINT OF CARE 173 MG/DL (70-110)
[2021-11-18 11:32] VITALS: BP 127/95
[2021-11-18] MEDS: INSULIN LISPRO 100 UNITS/ML SQ PRN (12:10)
[2021-11-18 16:15] VITALS: BP 135/87
[2021-11-18 18:22] LABS: GLUCOMETER DEV NAME(LOC) 5N.1C; GLUCOSE,POINT OF CARE 184 MG/DL (70-110)
[2021-11-18 18:22] LABS: GLUCOMETER DEV NAME(LOC) 5N.1C; GLUCOSE,POINT OF CARE 119 MG/DL (70-110)
[2021-11-18 20:04] VITALS: BP 139/91
[2021-11-18] MEDS: ATORVASTATIN CALCIUM 40 MG TABLET PO SCH (20:14)
[2021-11-18 20:15] LABS: GLUCOMETER DEV NAME(LOC) 5N.3; GLUCOSE,POINT OF CARE 170 MG/DL (70-110)
[2021-11-19 04:05] VITALS: BP 143/95
[2021-11-19 06:32] LABS: GLUCOMETER DEV NAME(LOC) 6N.2; GLUCOSE,POINT OF CARE 120 MG/DL (70-110)
[2021-11-19] MEDS: DOCUSATE SODIUM 100 MG CAPSULE PO SCH (08:11)
[2021-11-19] MEDS: NIFEdipine 30 MG ER TABLET PO SCH (08:11)
[2021-11-19] MEDS: APIXABAN 5 MG TABLET PO SCH (08:11)
[2021-11-19] MEDS: TAMSULOSIN HCL 0.4 MG CAPSULE PO SCH (08:11)
[2021-11-19] MEDS: FAMOTIDINE 20 MG TABLET PO SCH (08:11)
[2021-11-19] MEDS: METOPROLOL SUCCINATE 25 MG ER TABLET PO SCH (08:11)
[2021-11-19 08:14] VITALS: BP 168/118
[2021-11-19] MEDS: INSULIN GLARGINE,HUM.REC.ANLOG 100 UNITS/ML SQ SCH (08:32)
[2021-11-19] MEDS: INSULIN LISPRO 100 UNITS/ML SQ PRN (11:46)
[2021-11-19 14:29] VITALS: BP 120/70
[2021-11-19 16:38] VITALS: BP 116/71
[2021-11-19 19:56] LABS: GLUCOMETER DEV NAME(LOC) 6N.1; GLUCOSE,POINT OF CARE 165 MG/DL (70-110)
== END 2021-11-19 17:20 | DRG 469 ==
LOC: EMS 09:29 → 5S 10-30 00:30 → 6N 11-18 21:49
PROVIDERS: ADMIT Hospitalist; ATTEND Hospitalist
DX: N17.9 Acute kidney failure, unspecified (principal); I26.99 Other pulmonary embolism without acute cor pulmonale; J12.82 Pneumonia due to coronavirus disease 2019; G93.41 Metabolic encephalopathy; U07.1 COVID-19; E87.0 Hyperosmolality and hypernatremia; R65.10 Systemic inflammatory response syndrome (SIRS) of non-infectious origin without acute organ dysfunction; E86.0 Dehydration; I69.359 Hemiplegia and hemiparesis following cerebral infarction affecting unspecified side; E11.22 Type 2 diabetes mellitus with diabetic chronic kidney disease; D72.829 Elevated white blood cell count, unspecified; E11.65 Type 2 diabetes mellitus with hyperglycemia; E78.5 Hyperlipidemia, unspecified; I12.9 Hypertensive chronic kidney disease with stage 1 through stage 4 chronic kidney disease, or unspecified chronic kidney disease; I44.7 Left bundle-branch block, unspecified; N18.30 Chronic kidney disease, stage 3 unspecified; Z79.01 Long term (current) use of anticoagulants
CPT/HCPCS: 36600; 70450; 71045; 71275; 80048; 80053; 81001; 82009; 82140; 82550; 82805; 82962; 83605; 83735; 83880; 84439; 84443; 84484; 85025; 85379; 85610; 85730; 86140; 87040; 92526; 92610; 93005; 93306; 93880; 93970; 97110; 97116; 97162; 97165; 97530; 97535; 99291; G0480; J0360; J0696; J1644; J1815; J2597; J3480; J3490; J7030; J7050; J7060; Q9967; 36415-L1; 36415-TC; U0003